=== PATIENT | male | born 2000 | race Caucasian/White ===

== ENCOUNTER 2018-02-04 19:43 | Emergency (ER) | payer OTHER ==
[2018-02-04 19:48] VITALS: BP 124/87
[2018-02-04] MEDS ORDERED: OXYMETAZOLINE 30 ML NASAL SPRAY EACHNARE ONE (20:24)
[2018-02-04] MEDS ORDERED: SILVER NITRATE APPLICATOR 1 APPL TP ONE ×2 (20:24→20:25)
[2018-02-04] MEDS ORDERED: OXYMETAZOLINE 30 ML NASAL SPRAY ONE (20:25)
[2018-02-04] MEDS ORDERED: COCAINE HCL 4% 4 ML BTL TP ONE ×2 (20:25)
--- NOTE | 2018-02-04 20:33 | EDPHY ---
H & P Stated Complaint: Epistaxis for one hour Time Seen by Provider: 02/04/18 20:01 HPI/ROS: CHIEF COMPLAINT: Epistaxis HISTORY OF PRESENT ILLNESS: The patient presents to the ED with acute epistaxis from his right near the began approximately an hour prior to arrival. The patient denies any antibiotic use. The patient denies history of trauma. He denies recent history of nose bleeds. The patient denies any additional acute complaints. The patient takes no regular medications. He denies past medical history. REVIEW OF SYSTEMS: A comprehensive 10 point review of systems is otherwise negative aside from elements mentioned in the history of present illness. Source: Patient Exam Limitations: No limitations - Personal History Current Tetanus/Diphtheria Vaccine: Yes Current Tetanus Diphtheria and Acellular Pertussis (TDAP): Yes - Medical/Surgical History Hx Asthma: No Hx Chronic Respiratory Disease: No Hx Diabetes: No Hx Cardiac Disease: No Hx Renal Disease: No Hx Cirrhosis: No Hx Alcoholism: No Hx HIV/AIDS: No Hx Splenectomy or Spleen Trauma: No Other PMH: denies - Social History Smoking Status: Never smoked - Physical Exam Exam: General Appearance: Alert, no distress Eyes: Pupils equal and round no pallor or injection ENT, Mouth: Scant active bleeding noted from the right anterior nasal septum Respiratory: There are no retractions, lungs are clear to auscultation Cardiovascular: Regular rate and rhythm Constitutional: Initial Vital Signs Temperature (C) 36.6 C 02/04/18 19:45 Heart Rate 97 02/04/18 19:45 Respiratory Rate 16 02/04/18 19:45 Blood Pressure 124/87 H 02/04/18 19:45 O2 Sat (%) 98 02/04/18 19:45 O2 Delivery Mode Room Air Allergies/Adverse Reactions: Sulfa (Sulfonamide Antibiotics) Allergy (Verified 02/04/18 19:48) Home Medications: Medication Instructions Recorded NK [No Known Home Meds] 02/04/18 Medical Decision Making Procedures: Procedure: Epistaxis control. Indication: nosebleed not controlled by direct pressure. Risks, benefits, alternatives discussed with patient and consent obtained. The right nares was anesthetized with topical cocaine. The anterior epistaxis was identified. The patient was treated with vaso constriction with Afrin and silver nitrate cautery. Following the procedure the patient was re-examined and the bleeding was well controlled. The patient tolerated the procedure well. The procedure was performed by myself. ED Course/Re-evaluation: Patient presents the emergency department with epistaxis. He was noted to have a small area of active bleeding from his right anterior nasal septum which was cauterized without complication by myself. The patient was observed in the ED without evidence of rebleeding. He will be discharged home with a referral to ENT and customary aftercare instructions and return precautions. Differential diagnosis considered includes anterior epistaxis, posterior epistaxis - Data Points Medications Given: Discontinued Medications Cocaine HCl (Cocaine Hcl) 1 patricia TP EDNOW ONE Stop: 02/04/18 20:26 Last Admin: 02/04/18 20: Dose: 1 patricia Oxymetazoline HCl (Afrin Nasal Mobile) 2 sprays EACHNARE EDNOW ONE Stop: 02/04/18 20:25 Last Admin: 02/04/18 20:27 Dose: 2 sprays Silver Nitrate/Potassium Nitrate (Silver Nitrate Applicator) 4 each TP EDNOW ONE Stop: 02/04/18 20:25 Last Admin: 02/04/18 20: Dose: Not Given Departure - Departure Disposition: Home, Routine, Self-Care Clinical Impression: Anterior epistaxis Condition: Good Instructions: Nosebleed (ED) Additional Instructions: 1. In the event of minor bleeding apply direct pressure with fingers are clamp for 10 min. Return to the ED for unresolved bleeding. 2. If you continue to have ongoing intermittent bleeding please schedule a follow-up appointment with the ENT physician you have been referred to. Referrals: Serafin Pak MD [Medical Doctor] - As per Instructions
== END 2018-02-04 20:45 | disposition home or self-care (01) ==
PROC: 3E09XTZ Introduction of Destructive Agent into Nose, External Approach (ICD-10-PCS; principal; 2018-02-04)
DX: R04.0 Epistaxis (principal)